=== PATIENT | male | born 1955 | race Caucasian/White ===

== ENCOUNTER 2019-12-08 14:34 | Emergency (ER) | payer MEDICAID ==
[~2019-12-08] VITALS: Ht 175.3 cm; Wt 82.1 kg
[2019-12-08 14:44] VITALS: BP 138/79
--- NOTE | 2019-12-08 14:54 | NUR ---
Patient ambulated to bed 7.
--- NOTE | 2019-12-08 14:57 | NUR ---
64/M STATES HE IS NEW ONSET DM, DIAGNOSED TODAY. GLUCOSE 412 AT CLINIC. STATES MILD NAUSEA WITHOUT VOMITING, FATIGUE. DENIES DIZZINESS. PT APPEARS NAD. MEDHX: DM
--- NOTE | 2019-12-08 15:09 | NUR ---
DR ZEPEDA EVALUATING PT AT BEDSIDE
[2019-12-08] MEDS ORDERED: NACL 0.9% 1,000 ML IV ONE (15:25)
--- NOTE | 2019-12-08 15:34 | NUR ---
XRAY AT BEDSIDE
--- NOTE | 2019-12-08 15:57 | NUR ---
REHAB CONSULTANT AT BEDSIDE FOR BLOOD DRAW
[2019-12-08 16:15] LABS: BASOPHILS # (AUTO) 0.1 K/uL (0.00-0.22); BASOPHILS % (AUTO) 1.3 % (0.0-2.0); EOSINOPHILS # (AUTO) 0.1 K/uL (0-0.4); EOSINOPHILS % (AUTO) 1.3 % (0.0-4.0); HEMATOCRIT 43.7 % (36-52); HEMOGLOBIN 14.6 g/dL (12.0-18.0); LYMPHOCYTES # (AUTO) 1.4 K/uL (2.0-11.5); LYMPHOCYTES % (AUTO) 22.9 % (20.5-51.1); MEAN CORPUSCULAR HEMOGLOBIN 30 pg (27-31); MEAN CORPUSCULAR HGB CONC 33 g/dL (33-37); MEAN CORPUSCULAR VOLUME 90.8 fL (80-94); MONOCYTES # (AUTO) 0.9 K/uL (0.8-1.0); MONOCYTES % (AUTO) 14.5 % (1.7-9.3); NEUTROPHILS # (AUTO) 3.6 K/uL (1.8-7.7); PLATELET COUNT (AUTO) 167 K/uL (140-450); RED BLOOD CELL COUNT(AUTO) 4.81 MIL/uL (4.20-6.10); RED CELL DISTRIBUTION WIDTH 13.3 % (11.6-13.7); WHITE BLOOD COUNT (AUTO) 6.1 K/uL (4.8-10.8)
[2019-12-08 16:37] LABS: APPEARANCE,URINE CLEAR (CLEAR); BILIRUBIN,URINE NEGATIVE (NEGATIVE); BLOOD, URINE NEGATIVE (NEGATIVE); COLOR,URINE YELLOW (YELLOW); LEUKOCYTE ESTERASE ,URINE NEGATIVE (NEGATIVE); NITRITE, URINE NEGATIVE (NEGATIVE); UGLUCOSE 3+ (NEGATIVE)
[2019-12-08 16:37] LABS: ACETONE, SERUM NEGATIVE (NEGATIVE)
[2019-12-08 16:40] LABS: ALBUMIN 3.6 g/dL (3.4-5.0); ANION GAP 11.3 (8-16); ASPARTATE AMINOTRANSFERASE 78 U/L (15-37); CARBON DIOXIDE 27.6 mmol/L (21-32); CHLORIDE 101 mmol/L (98-107); GFR ARICAN-AMERICAN 97 mL/min (>90); GLUCOSE 267 mg/dL (74-106); POTASSIUM 3.9 mmol/L (3.5-5.1); SODIUM SERUM 136 mmol/L (136-145); TOTAL BILIRUBIN 0.4 mg/dL (0.0-1.0); UREA NITROGEN, BLOOD 15 mg/dL (7-18)
--- NOTE | 2019-12-08 16:57 | NUR ---
DR ZEPEDA SPEAKING WITH PT AT BEDSIDE
--- NOTE | 2019-12-08 17:04 | NUR ---
Patient discharged with v/s stable. Written and verbal after care instructions given and explained. Patient alert, oriented and verbalized understanding of instructions. Ambulatory with steady gait. All questions addressed prior to discharge. ID band removed. Patient advised to follow up with PMD. Rx of METFORMIN given. Patient educated on indication of medication including possible reaction and side effects. Opportunity to ask questions provided and answered.
[2019-12-08 17:07] VITALS: BP 142/85
== END 2019-12-08 17:04 | disposition home or self-care (01) ==
LOC: MED 14:34
DX: E86.0 Dehydration (principal); E11.8 Type 2 diabetes mellitus with unspecified complications; J45.909 Unspecified asthma, uncomplicated
CPT/HCPCS: 36415; 71045; 80053; 81003; 82009; 82948; 85025; 96360; 99284; J7030; 99283

== ENCOUNTER 2021-09-19 20:08 | Emergency (ER) | payer MEDICAID ==
[~2021-09-19] VITALS: Ht 167.6 cm; Wt 83.9 kg
[2021-09-19 20:23] VITALS: BP 143/80
--- NOTE | 2021-09-19 21:48 | NUR ---
Patient returned back from radiology dept to lobby.
--- NOTE | 2021-09-19 22:14 | NUR ---
Dr. Kulkarni at triage to exam patient.
[2021-09-19] MEDS ORDERED: ONDA-188 PO (22:22)
[2021-09-19] MEDS ORDERED: NAPR-54 PO (22:22)
[2021-09-19] MEDS ORDERED: LOTC TP (22:25)
[2021-09-19 22:35] VITALS: BP 143/80
--- NOTE | 2021-09-19 22:35 | NUR ---
Patient discharged with v/s stable. Written and verbal after care instructions given and explained. Patient alert, oriented and verbalized understanding of instructions. Ambulatory with steady gait. All questions addressed prior to discharge. ID band removed. Patient advised to follow up with PMD. Rx of Clotrimazole, Naproxen and Zofran given. Patient educated on indication of medication including possible reaction and side effects. Opportunity to ask questions provided and answered.
== END 2021-09-19 22:35 | disposition home or self-care (01) ==
LOC: MED 20:08
DX: S46.012A Strain of muscle(s) and tendon(s) of the rotator cuff of left shoulder, initial encounter (principal); R11.2 Nausea with vomiting, unspecified; B35.1 Tinea unguium; J45.909 Unspecified asthma, uncomplicated; Z79.899 Other long term (current) drug therapy; X58.XXXA Exposure to other specified factors, initial encounter; Y93.89 Activity, other specified; Y92.89 Other specified places as the place of occurrence of the external cause; Y99.8 Other external cause status
CPT/HCPCS: 73030; 73060; 99284

== ENCOUNTER 2022-01-18 12:54 | Emergency (ER) | payer SELFPAY ==
[~2022-01-18] VITALS: Ht 170.2 cm; Wt 81.6 kg
[~2022-01-18 12:54] MED LIST: LOTC TP; NAPR-54 PO; ONDA-188 PO
[2022-01-18 13:11] VITALS: BP 173/78
[2022-01-18] MEDS ORDERED: NACL 0.9% 1,000 ML IV ONE (14:40)
--- NOTE | 2022-01-18 14:48 | NUR ---
66YO MALE PT C/O COUGH X2 WEEKS . PT REPORTS 4/10 CHEST PAIN WHEN COUGHING, DENIES PAIN AT THIS TIME. PT STATES GOING TO CLINIC CHECK UP AND TOLD TO COME TO ER DUE TO HIGH BS READING. DENIES TAKING MEDICATION FOR SYMPTOMS . PT PRESENTS WITH DRY COUGH, SKIN WARM TO TOUCH, RESPIRATIONS EVEN AND UNLABORED. DENIES N/V/D OR SOB. PT AAOX4,NO VISIBLE DISTRESS AND AT REST. HX: DIABETES, ASTHMA, BRONCHITIS NKA
[2022-01-18 15:19] LABS: BASOPHILS % (AUTO) 0.6 % (0.0-2.0); EOSINOPHILS # (AUTO) 0.1 K/uL (0-0.4); EOSINOPHILS % (AUTO) 1.6 % (0.0-4.0); HEMATOCRIT 47.3 % (36-52); HEMOGLOBIN 15.7 g/dL (12.0-18.0); LYMPHOCYTES # (AUTO) 2.6 K/uL (2.0-11.5); LYMPHOCYTES % (AUTO) 36.7 % (20.5-51.1); MEAN CORPUSCULAR HEMOGLOBIN 30 pg (27-31); MEAN CORPUSCULAR HGB CONC 33 g/dL (33-37); MEAN CORPUSCULAR VOLUME 89.2 fL (80-94); MONOCYTES # (AUTO) 0.9 K/uL (0.8-1.0); MONOCYTES % (AUTO) 12.6 % (1.7-9.3); NEUTROPHILS # (AUTO) 3.5 K/uL (1.8-7.7); NEUTROPHILS % (AUTO) 48.5 % (42.2-75.2); PLATELET COUNT (AUTO) 211 K/uL (140-450); RED CELL DISTRIBUTION WIDTH 13.6 % (11.6-13.7); WHITE BLOOD COUNT (AUTO) 7.2 K/uL (4.8-10.8)
[2022-01-18 15:36] LABS: ALBUMIN 4.1 g/dL (3.4-5.0); ANION GAP 12.4 (8-16); CARBON DIOXIDE 27.5 mmol/L (21-32); CREATININE 0.9 mg/dL (0.6-1.3); POTASSIUM 3.9 mmol/L (3.5-5.1); TOTAL BILIRUBIN 0.7 mg/dL (0.0-1.0)
[2022-01-18] MEDS ORDERED: NAPR-54 PO (16:41)
[2022-01-18] MEDS ORDERED: DEXT118S25 PO (16:41)
[2022-01-18 16:53] VITALS: BP 147/79
--- NOTE | 2022-01-18 16:53 | NUR ---
Patient discharged with v/s stable. Written and verbal after care instructions given and explained. Patient alert, oriented and verbalized understanding of instructions. Ambulatory with steady gait. All questions addressed prior to discharge. ID band removed. Patient advised to follow up with PMD. Rx of NAPROXEN AND GUAIFENSIN/DEXTROMETHORPAHN given. Opportunity to ask questions provided and answered.
--- NOTE | 2022-01-18 16:54 | NUR ---
Chart checked and completed. The patient's care was reviewed and supervised by Felicia Bowser RN.
== END 2022-01-18 16:53 | disposition home or self-care (01) ==
LOC: MED 12:54
DX: E11.65 Type 2 diabetes mellitus with hyperglycemia (principal); M25.512 Pain in left shoulder; G89.29 Other chronic pain; R05.9 Cough, unspecified; J45.909 Unspecified asthma, uncomplicated; Z79.899 Other long term (current) drug therapy
CPT/HCPCS: 36415; 80053; 82948; 85025; 96360; 99283; J7030